=== PATIENT | male | born 1990 | race Caucasian/White ===

== ENCOUNTER → 2016-12-18 | Outpatient (CLI) | payer OTHER ==
[~2016-12-18] MED LIST: AZITTAB PO; CLIN300C10 PO
--- NOTE | 2016-12-18 14:46 | DIAGNOSTIC IMAGING REPORT ---
CHEST 2 VIEWS ROUTINE CLINICAL HISTORY: COUGH COMPARISON STUDY: 10/28/2012 FINDINGS: The cardiac and mediastinal contours are normal. There is no evidence of focal pulmonary consolidation. There is no evidence of failure. No pleural effusions are visualized.[ IMPRESSION: No active disease in the chest. Electronically signed by: Sebas Lomax M.D. 12/18/2016 2:44 PM Dictated Date/Time: 12/18/2016 2:44 PM
== END | disposition home or self-care (01) ==
LOC: C.RADBC 14:25
PROVIDERS: ATTEND Physician Assistant Medical
DX: R05 Cough (principal)

== ENCOUNTER 2017-03-13 20:02 | Emergency (ER) | payer OTHER ==
[~2017-03-13] VITALS: Ht 172.7 cm; Wt 75.0 kg
[2017-03-13 20:06] VITALS: TEMP 37.2; Ht 172.7 cm; Wt 75.0 kg
[2017-03-13] MEDS ORDERED: KETOROLAC TROMETHAMINE 30 MG/ML VIAL IV STA (20:19)
[2017-03-13] MEDS ORDERED: ONDANSETRON INJ 2 MG/ML 2 ML VIAL IV STA (20:19)
[2017-03-13] MEDS ORDERED: SODIUM CHLORIDE 0.9% 1000ML 2,000 ML IV STA (20:19)
[2017-03-13] MEDS ORDERED: AZITTAB PO (20:23)
[2017-03-13] MEDS ORDERED: OPTIRAY 320 IV PRN (20:30)
[2017-03-13 21:06] LABS: BUN/CREATININE RATIO 10.8 (10-20); CALCIUM 8.5 mg/dl (8.5-10.1); CREATININE 1.13 mg/dl (0.60-1.40); POTASSIUM 3.8 mmol/L (3.5-5.1)
--- NOTE | 2017-03-13 21:11 | DIAGNOSTIC IMAGING REPORT ---
(CHEST FOR PE) ANGIO WITH CT DOSE: 727.50 mGy.cm HISTORY: 27 years-old Male presents with acute atypical chest pain. TECHNIQUE: Multiple CTA images of the chest were obtained after the intravenous administration of 115 mL Optiray 320. Coronal and sagittal MIPS were obtained from the axial data set and were submitted for review. A dose lowering technique was utilized adhering to the principles of ALARA. COMPARISON: Chest radiographs of same day FINDINGS: CTA: There is adequate opacification of the pulmonary arteries to the level of the subsegmental branches without convincing evidence of acute pulmonary embolism. The thoracic aorta is normal in both course and caliber without dissection or aneurysm. Heart size is normal. Variant anatomy of the celiac trunk is noted with common hepatic artery emanating directly from the aortic arch. CT CHEST: No dominant thyroid nodule is seen. No pathologically adenopathy by CT size criteria. There is no pneumothorax, pleural effusion or focal airspace consolidation. 3 mm pleural-based nodular opacity of the apical right upper lobe on image 296 of series 4 is likely benign. Spleen is enlarged measuring up to 14.8 cm. Gallbladder is partially contracted with wall thickening. The osseous structures appear intact. IMPRESSION: 1. No acute intrathoracic abnormality identified, specifically no acute aortic pathology or evidence of pulmonary thromboembolic disease. 2. Moderate splenomegaly. The above report was generated using voice recognition software. It may contain grammatical, syntax or spelling errors. Electronically signed by: Marko Sevilla M.D. 03/13/2017 9:10 PM Dictated Date/Time: 03/13/2017 9:03 PM
[2017-03-13 21:12] LABS: HEMATOCRIT 38.8 % (42-52); MEAN CORPUSCULAR HEMOGLOBIN 31.8 pg (25-34); MEAN CORPUSCULAR HGB CONC 36.6 g/dl (32-36); PLATELET COUNT 100 K/uL (130-400); RED BLOOD COUNT 4.46 M/uL (4.7-6.1); WHITE BLOOD COUNT 7.31 K/uL (4.8-10.8)
[2017-03-13 21:13] LABS: COMPLETE YES; LYMPH ABS # 0.83 K/uL (1.2-3.4); LYMPHOCYTE % 11.3 %; NEUTROPHILS % 22.6 %; PLT ESTIMATE DECREASED; VARIANT LYM ABS # 4.45 K/uL; VARIANT LYMPHOCYTE % 60.9 %
--- NOTE | 2017-03-13 21:20 | DIAGNOSTIC IMAGING REPORT ---
ABD/PELVIS IV CONTRAST ONLY HISTORY: 27 years-old Male eleated lfts and dd sent in by pcp acute elevated liver function test. Acute atypical chest pain. COMPARISON: CTA chest of same day, right upper quadrant ultrasound 10/28/2012 TECHNIQUE: Multiple axial CT images of the abdomen and pelvis were obtained following the intravenous administration of 115 mL Optiray 320. A dose lowering technique was used consistent with the principals of KIEL. FINDINGS: Imaged lung bases are clear. There is no pneumoperitoneum identified. Imaged inferior cardiac chambers are unremarkable. There is mild periportal edema, likely related to hydration status. The liver is otherwise unremarkable. No intrahepatic biliary ductal dilation identified. No focal hepatic mass lesions. 6 mm area of increased attenuation is seen within the region of the gallbladder neck on image 123 of series 6. Nondistention of the gallbladder with diffuse bladder wall thickening. Spleen is moderately enlarged measuring up to 16 cm in length. Pancreas and adrenal glands are within normal limits. Delayed phase of imaging was conducted with excretory phase of the collecting systems. No renal calculi or hydronephrosis. Proximal opacified ureters are unremarkable. Urinary bladder and prostate are within normal limits. Abdominal aorta is normal in both course and caliber. Mildly prominent nonspecific periaortic lymph nodes are seen measuring up to 10 mm as seen on image 134 of series 6. Additionally, mildly prominent gastrohepatic and periportal lymph nodes are also seen measuring up to approximately 10 mm in short axis. Small duodenal diverticulum. No bowel obstruction. The appendix appears normal. No ascites. Soft tissues are unremarkable. Bones appear intact. No significant degenerative changes. IMPRESSION: 1. Moderate splenomegaly measuring up to 16 cm in length. 2. 6 mm area of increased attenuation near the gallbladder neck may correlate with previously described gallbladder polyps or cholelithiasis. Gallbladder is partially collapsed with wall thickening. Findings could be correlated with right upper quadrant ultrasound. 3. Normal appendix. 4. Mild nonspecific periaortic, gastrohepatic and periportal adenopathy. The above report was generated using voice recognition software. It may contain grammatical, syntax or spelling errors. Electronically signed by: Marko Sevilla M.D. 03/13/2017 9:18 PM Dictated Date/Time: 03/13/2017 9:10 PM
[2017-03-13 21:52] LABS: URINE APPEARANCE CLEAR (CLEAR); URINE BILIRUBIN NEG (NEG); URINE COLOR YELLOW; URINE EPITHELIAL CELL AUTO 0-5 /lpf (0-5); URINE NITRITE NEG (NEG); URINE PH 6.5 (4.5-7.5); URINE SPECIFIC GRAVITY > 1.045 (1.000-1.030); UROBILINOGEN NEG (NEG); ZZUR CULT IF INDIC CLEAN CATCH NO
[2017-03-13 22:02] LABS: MANUAL MICROSCOPIC REQUIRED? NO; REVIEW REQ? NO
--- NOTE | 2017-03-13 22:28 | DIAGNOSTIC IMAGING REPORT ---
GALLBLADDER-ABD LIMITED HISTORY: 27 years-old Male jane lfts acute elevated liver function tests COMPARISON: Gallbladder ultrasound 10/28/2012, CT abdomen of same day TECHNIQUE: Multiple real-time sonographic images of the abdominal right upper quadrant were obtained assessing grayscale appearance and color flow FINDINGS: Visualized portions of the pancreas are unremarkable. The liver measures up to 16.4 cm in length. Mild prominence of the intrahepatic biliary ducts. Gallbladder wall is thickened and hyperemic measuring up to 6 mm with partial distention of the gallbladder lumen. No shadowing cholelithiasis or gallbladder wall polyps identified. Common bile duct measures 0.5 cm. The imaged right kidney is unremarkable without hydronephrosis. IMPRESSION: 1. Partial distention of the gallbladder lumen with thickened hyperemic gallbladder wall demonstrating mild pericholecystic fluid. No associated cholelithiasis or definite gallbladder polyps identified. These findings are nonspecific. Differential considerations would include hepatitis, acalculus cholecystitis among other etiologies. 2. Mild prominence of the intrahepatic biliary ducts. Common bile duct is normal. The above report was generated using voice recognition software. It may contain grammatical, syntax or spelling errors. Electronically signed by: Marko Sevilla M.D. 03/13/2017 10:27 PM Dictated Date/Time: 03/13/2017 10:20 PM
--- NOTE | 2017-03-13 23:04 | EMERGENCY ROOM VISIT NOTE ---
History Report prepared by Joaquínibdoris: Steve Disla Under the Supervision of: Dr. Panda De Jesus D.O. First contact with patient: 20:09 Chief Complaint: ABNORMAL LABS Stated Complaint: ABNORMAL LAB RESULTS History of Present Illness The patient is a 27 year old male who presents to the Emergency Room with complaints of persistent generalized illness beginning six days ago. The patient also complains of body aches, diarrhea, nausea, headache, and sinus congestion. He states that he had an ear ache a few days ago. He denies sore throat or urinary symptoms. The patient states that he has not been eating much recently. He denies any drug use. He drinks occasionally with the most recent time being four days ago. The patient has taken [place] for his symptoms but has seen no relief. He had blood work drawn today and was called with the results just prior to arrival. He had the blood work with his PCP due to a persistent hot and cold sensations beginning six days ago. The patient states that the blood work revealed an elevated D-dimer and elevated LFTs. He checked his temperature three days ago and found it to be 101 degrees. He does complain of pain under both of his diaphragms but is only really present with eating. Source of History: patient Onset: Six days ago Position: other (generalized) Quality: other (illness) Timing: other (persistent) Associated Symptoms: + headache, + nausea, + diarrhea, No sorethroat, No urinary symptoms Note: The patient also complains of body aches, and sinus congestion. Review of Systems See HPI for pertinent positives & negatives. A total of 10 systems reviewed and were otherwise negative. Past Medical & Surgical Medical Problems: (1) No Known Active Medical Problems Family History No pertinent family history stated. Social History Smoking Status: Current Every Day Smoker Occupation Status: employed Current/Historical Medications Scheduled Azithromycin (Zithromax Z-Kishor), 1 PKT PO UD Allergies Coded Allergies: Morphine (Unverified Allergy, Severe, ANAPHYLAXIS, 03/13/17) Amoxicillin (Verified Allergy, Mild, RASH, 10/28/12) Penicillins (Verified Allergy, Unknown, HIVES, 12/11/16) Physical Exam Vital Signs Date Time Temp Pulse Resp B/P (MAP) Pulse Ox O2 Delivery O2 Flow Rate FiO2 03/13/17 21:51 90 18 119/66 100 Room Air 10/25/17 20:06 37.2 113 18 131/87 95 Room Air Physical Exam GENERAL: Sitting up in bed, alert, well appearing, well nourished, no distress, non-toxic EYE EXAM: normal conjunctiva. OROPHARYNX: no exudate, no erythema, lips, buccal mucosa, and tongue normal and mucous membranes are moist NECK: supple, no nuchal rigidity, no adenopathy, non-tender LUNGS: Clear to auscultation. Normal chest wall mechanics HEART: no murmurs, S1 normal and S2 normal ABDOMEN: abdomen soft, non-tender, normo-active bowel sounds, no masses, no rebound or guarding. BACK: Back is symmetrical on inspection and there is no deformity, no midline tenderness, no CVA tenderness. SKIN: no rashes and no bruising UPPER EXTREMITIES: upper extremities are grossly normal. LOWER EXTREMITIES: No pitting edema. NEURO EXAM: Normal sensorium, cranial nerves II-XII grossly intact, normal speech, no gross weakness of arms, no gross weakness of legs. Medical Decision & Procedures ER Provider Diagnostic Interpretation: Radiology results as stated below per my review and the radiologist's interpretation: (CHEST FOR PE) ANGIO WITH FINDINGS: CTA: There is adequate opacification of the pulmonary arteries to the level of the subsegmental branches without convincing evidence of acute pulmonary embolism. The thoracic aorta is normal in both course and caliber without dissection or aneurysm. Heart size is normal. Variant anatomy of the celiac trunk is noted with common hepatic artery emanating directly from the aortic arch. CT CHEST: No dominant thyroid nodule is seen. No pathologically adenopathy by CT size criteria. There is no pneumothorax, pleural effusion or focal airspace consolidation. 3 mm pleural-based nodular opacity of the apical right upper lobe on image 296 of series 4 is likely benign. Spleen is enlarged measuring up to 14.8 cm. Gallbladder is partially contracted with wall thickening. The osseous structures appear intact. IMPRESSION: 1. No acute intrathoracic abnormality identified, specifically no acute aortic pathology or evidence of pulmonary thromboembolic disease. 2. Moderate splenomegaly. The above report was generated using voice recognition software. It may contain grammatical, syntax or spelling errors. Electronically signed by: Marko Sevilla M.D. 03/13/2017 9:10 PM ABD/PELVIS IV CONTRAST ONLY FINDINGS: Imaged lung bases are clear. There is no pneumoperitoneum identified. Imaged inferior cardiac chambers are unremarkable. There is mild periportal edema, likely related to hydration status. The liver is otherwise unremarkable. No intrahepatic biliary ductal dilation identified. No focal hepatic mass lesions. 6 mm area of increased attenuation is seen within the region of the gallbladder neck on image 123 of series 6. Nondistention of the gallbladder with diffuse bladder wall thickening. Spleen is moderately enlarged measuring up to 16 cm in length. Pancreas and adrenal glands are within normal limits. Delayed phase of imaging was conducted with excretory phase of the collecting systems. No renal calculi or hydronephrosis. Proximal opacified ureters are unremarkable. Urinary bladder and prostate are within normal limits. Abdominal aorta is normal in both course and caliber. Mildly prominent nonspecific periaortic lymph nodes are seen measuring up to 10 mm as seen on image 134 of series 6. Additionally, mildly prominent gastrohepatic and periportal lymph nodes are also seen measuring up to approximately 10 mm in short axis. Small duodenal diverticulum. No bowel obstruction. The appendix appears normal. No ascites. Soft tissues are unremarkable. Bones appear intact. No significant degenerative changes. IMPRESSION: 1. Moderate splenomegaly measuring up to 16 cm in length. 2. 6 mm area of increased attenuation near the gallbladder neck may correlate with previously described gallbladder polyps or cholelithiasis. Gallbladder is partially collapsed with wall thickening. Findings could be correlated with right upper quadrant ultrasound. 3. Normal appendix. 4. Mild nonspecific periaortic, gastrohepatic and periportal adenopathy. The above report was generated using voice recognition software. It may contain grammatical, syntax or spelling errors. Electronically signed by: Marko Sevilla M.D. 03/13/2017 9:18 PM Laboratory Results 03/13/17 20:35 Red Blood Count 4.46, Mean Corpuscular Volume 87.0, Mean Corpuscular Hemoglobin 31.8, Mean Corpuscular Hemoglobin Concent 36.6, Mean Platelet Volume 10.0 03/13/17 20:35 Test 03/13/17 20:35 03/13/17 21:30 White Blood Count 7.31 K/uL (4.8-10.8) Red Blood Count 4.46 M/uL (4.7-6.1) Hemoglobin 14.2 g/dL (14.0-18.0) Hematocrit 38.8 % (42-52) Mean Corpuscular Volume 87.0 fL (80-100) Mean Corpuscular Hemoglobin 31.8 pg (25-34) Mean Corpuscular Hemoglobin Concent 36.6 g/dl (32-36) Platelet Count 100 K/uL (130-400) Mean Platelet Volume 10.0 fL (7.4-10.4) RDW Standard Deviation 40.7 fL (36.4-46.3) RDW Coefficient of Variation 12.7 % (11.5-14.5) Neutrophils % (Manual) 22.6 % Lymphocytes % (Manual) 11.3 % Variant Lymphocytes % (manual) 60.9 % Monocytes % (Manual) 5.2 % Neutrophils # (Manual) 1.65 K/uL (1.4-6.5) Total Absolute Neutrophils 1.65 K/uL (1.4-6.5) Lymphocytes # (Manual) 0.83 K/uL (1.2-3.4) Absolute Variant Lymphocytes 4.45 K/uL Total Absolute Lymphocytes 5.28 K/uL (1.2-3.4) Monocytes # (Manual) 0.38 K/uL (0.11-0.59) Platelet Estimate DECREASED Red Blood Cell Morphology Unremarkable Anion Gap 6.0 mmol/L (3-11) Est Creatinine Clear Calc Drug Dose 96.7 ml/min Estimated GFR () 104.1 Estimated GFR (Non- 89.8 BUN/Creatinine Ratio 10.8 (10-20) Calcium Level 8.5 mg/dl (8.5-10.1) Total Bilirubin 0.8 mg/dl (0.2-1) Direct Bilirubin 0.2 mg/dl (0-0.2) Aspartate Amino Transf (AST/SGOT) 105 U/L (15-37) Alanine Aminotransferase (ALT/SGPT) 122 U/L (12-78) Alkaline Phosphatase 131 U/L (45-117) Total Protein 7.6 gm/dl (6.4-8.2) Albumin 3.6 gm/dl (3.4-5.0) Lipase 118 U/L (73-393) Monoscreen POS (NEG) Urine Color YELLOW Urine Appearance CLEAR (CLEAR) Urine pH 6.5 (4.5-7.5) Urine Specific [place] > 1.045 (1.000-1.030) Urine Protein NEG (NEG) Urine Glucose (UA) NEG (NEG) Urine Ketones NEG (NEG) Urine Occult Blood NEG (NEG) Urine Nitrite NEG (NEG) Urine Bilirubin NEG (NEG) Urine Urobilinogen NEG (NEG) Urine Leukocyte Esterase NEG (NEG) Urine WBC (Auto) 0 /hpf (0-5) Urine RBC (Auto) 0-4 /hpf (0-4) Urine Hyaline Casts (Auto) 1-5 /lpf (0-5) Urine Epithelial Cells (Auto) 0-5 /lpf (0-5) Urine Bacteria (Auto) NEG (NEG) Laboratory results per my review. Medications Administered Medications (Trade) Dose Ordered Sig/Benson Route Start Time Stop Time Status Last Admin Dose Admin Sodium Chloride 2,000 ml @ 999 mls/hr Q2H1M STAT IV 03/13/17 20:19 03/13/17 22:19 DC 03/13/17 20:38 999 MLS/HR Ondansetron HCl (Zofran Inj) 4 mg NOW STAT IV 03/13/17 20:19 03/13/17 20:20 DC 03/13/17 20:38 4 MG Ketorolac Tromethamine (Toradol Inj) 15 mg NOW STAT IV 03/13/17 20:19 03/13/17 20:20 DC 03/13/17 20:38 15 MG ECG Indication: other (illness) Rate (beats per minute): 64 Rhythm: sinus rhythm Findings: no ectopy, other (Normal intervals. Normal axis. ) ED Course ED COURSE: Vital signs were reviewed and showed tachycardia. The patients medical record was reviewed The above diagnostic studies were performed and reviewed. ED treatments and interventions as stated above. 2010: The patient was evaluated in room C5. A complete history and physical examination was performed. 2019: Ordered Toradol Inj 15 mg IV, Zofran Inj 4 mg IV, Sodium Chloride 2000 ml @ 999 mls/hr IV. 2230: Upon reevaluation, the patient is resting comfortably. I discussed my findings with the patient and he understands and agrees with the treatment plan. 2250: Discussed with Dr. Price 2300: D/w IM and they will admit Based on the patients age, coexisting illnesses, exam and lab findings the decision to treat as an inpatient was made. The patient remained stable while under my care. The patient appeared well at the time of admission. Medical Decision Differential diagnosis: Etiologies such as viral syndrome, otitis, pharyngitis, pneumonia, influenza, meningitis, urinary tract infection, sepsis, bacteremia, as well as others were entertained. Patient is a 27-year-old male who presents to ER following feeling hot and cold over the past 6 days associated with a fever of 1013 days ago. He admits to feeling achy all over a sore throat. He also has some nausea and intermittent ear pain. Patient was seen by PCP and found to have a transaminitis and elevated d-dimer. Patient was sent in to have a CT for possible about a clot versus PE. Because going labs were obtained. Did confirm a transaminitis. CT PE was negative. CT of the abdomen showed a thickened gallbladder wall. Cecil did eventually return and was positive. Ultrasound of right upper quadrant does show thickening of the gallbladder wall associated with pericholecystic fluid. I do not think this is acute cholecystitis. There is no stones and with his presentation, positive mono, transaminitis, enlarged spleen, I favor this is likely secondary to mono. I did discuss with general surgery. They agree likely secondary to mono. I did recommend admission to internal medicine for HIDA scan. I updated patient and family. Discussed with internal medicine for admission and they agreed. At 1110 Dr. Good evaluated the patient and rediscussed the case with Dr. Price. Per his report patient can be discharged and just follow up with the PCP. Patient and family were re-updated at bedside. Recommended following up with PCP per Dr. Price's request for mono. Again the patient had a completely benign exam. Medication Reconcilliation Current Medication List: was personally reviewed by me Blood Pressure Screening Patient's blood pressure: Normal blood pressure Blood pressure disposition: Did not require urgent referral Consults Time Called: 2300 Consulting Physician: Herve Good Additional Consults: Consulted Physician: Dr. Price Additional Comments: Recommended admission for HIDA scan in morning. Impression Primary Impression: Mononucleosis syndrome Additional Impressions: Spleen enlarged Transaminitis Thickening of wall of gallbladder pericholecystic fluid Scribe Attestation The scribe's documentation has been prepared under my direction and personally reviewed by me in its entirety. I confirm that the note above accurately reflects all work, treatment, procedures, and medical decision making performed by me. Departure Information Dispostion Home / Self-Care Referrals Trudy Howell M.D. (PCP) Forms HOME CARE DOCUMENTATION FORM, IMPORTANT VISIT INFORMATION, WORK / SCHOOL INSTRUCTIONS Patient Instructions ED Mononucleosis, [facility] Additional Instructions Please follow up with your primary care doctor with in the next 24 hours. Any worsening of your symptoms, please return to the ED immediately. This includes any fevers greater than 100.4, worsening pain, chest pain, shortness breath, persistent nausea, vomiting, unable to eat or drink, or any other concerning signs or symptoms from your standpoint. No return to any physical activity until cleared by her primary care doctor as you have an enlarged spleen and any trauma could rupture this. Please have your LFTs followed up on by your primary care doctor as there is slightly elevated but this is expected with mono. Problem Qualifiers
[2017-03-13 23:18] VITALS: BP 118/73; PULSE 88; O2SAT 99
--- NOTE | 2017-03-13 23:24 | Medical Consult ---
Consultation Date of Consultation: Mar 13, 2017. Attending Physician: History of Present Illness 27 y/o M - no significant medical Hx. Presents at behest of PCP due to 4 days persistent fever and abnormal LFTs. A Burleson spot was obtained in the ER which was +. The pt had also been c/o pleuritic upper abdomen/lower chest pain. He was subjected to a chest/abdomen CT which revealed an enlarged spleen and thickened gallbladder described as a nonspecific finding. He does not have central CP, SOB, N/V and denies a sore throat. US findings were consistent with CT findings. Past Medical/Surgical History Medical Problems: (1) Mononucleosis syndrome Status: Acute (2) Spleen enlarged Status: Acute (3) Thickening of wall of gallbladder Status: Acute (4) Transaminitis Status: Acute Family History noncontributory to above Social History States he drinks occasionally, smokes 1 pack/month - works in deliveries Does not play contact sports - attends gym 4x/wk Smoking Status: Current Every Day Smoker Occupation Status: employed Allergies Coded Allergies: Morphine (Unverified Allergy, Severe, ANAPHYLAXIS, 03/13/17) Amoxicillin (Verified Allergy, Mild, RASH, 10/28/12) Penicillins (Verified Allergy, Unknown, HIVES, 12/11/16) Current Inpatient Medications Current Inpatient Medications Medications (Trade) Dose Ordered Sig/Benson Route Start Time Stop Time Status Last Admin Dose Admin Ioversol (Optiray 320) 111 ml UD PRN IV 03/13/17 20:30 03/17/17 20:29 Review of Systems Constitutional: + fever, + sweats Eyes: No worsening of vision ENT: No hearing loss, No nasal symptoms Respiratory: No cough, No sputum, No wheezing Cardiovascular: + chest pain (pleuritic b/l lower) Abdomen: + pain, No nausea, No vomiting Musculoskeletal: No joint pain Genitourinary - Male: No hematuria, No urinary urgency Neurologic: No memory loss, No paralysis, No weakness Psychiatric: No depression symptoms Endocrine: + fatigue Hematologic / Lymphatic: No abnormal bleeding/bruising Integumentary: No rash Allergic / Immunologic: No environmental allergies Physical Exam Date Time Temp Pulse Resp B/P (MAP) Pulse Ox O2 Delivery O2 Flow Rate FiO2 03/13/17 21:51 90 18 119/66 100 Room Air 03/13/17 20:06 37.2 113 18 131/87 95 Room Air General Appearance: WD/WN, no apparent distress Head: normocephalic ENT: normal ENT inspection, pharynx normal Neck: supple, no JVD Respiratory/Chest: chest non-tender, lungs clear, normal breath sounds Cardiovascular: regular rate, rhythm, no edema, no gallop, no JVD, no murmur, normal peripheral pulses Abdomen/GI: normal bowel sounds, soft, + splenomegaly, + pertinent finding ( Could not elicit upper abdominal pain including RUQ on on deep palpation) Back: normal inspection, no CVA tenderness, no muscle spasm, normal range of motion Extremities/Musculoskelatal: normal inspection, normal range of motion Neurologic/Psych: pigment pusher II-XII nml as tested, no motor/sensory deficits, alert, oriented x 3 Skin: normal color Laboratory Results Last 24 Hours Test 03/13/17 20:35 03/13/17 21:30 White Blood Count 7.31 K/uL Red Blood Count 4.46 M/uL Hemoglobin 14.2 g/dL Hematocrit 38.8 % Mean Corpuscular Volume 87.0 fL Mean Corpuscular Hemoglobin 31.8 pg Mean Corpuscular Hemoglobin Concent 36.6 g/dl Platelet Count 100 K/uL Mean Platelet Volume 10.0 fL RDW Standard Deviation 40.7 fL RDW Coefficient of Variation 12.7 % Neutrophils % (Manual) 22.6 % Lymphocytes % (Manual) 11.3 % Variant Lymphocytes % (manual) 60.9 % Monocytes % (Manual) 5.2 % Neutrophils # (Manual) 1.65 K/uL Total Absolute Neutrophils 1.65 K/uL Lymphocytes # (Manual) 0.83 K/uL Absolute Variant Lymphocytes 4.45 K/uL Total Absolute Lymphocytes 5.28 K/uL Monocytes # (Manual) 0.38 K/uL Platelet Estimate DECREASED Red Blood Cell Morphology Unremarkable Sodium Level 138 mmol/L Potassium Level 3.8 mmol/L Chloride Level 104 mmol/L Carbon Dioxide Level 28 mmol/L Anion Gap 6.0 mmol/L Blood Urea Nitrogen 12 mg/dl Creatinine 1.13 mg/dl Est Creatinine Clear Calc Drug Dose 96.7 ml/min Estimated GFR () 104.1 Estimated GFR (Non- 89.8 BUN/Creatinine Ratio 10.8 Random Glucose 92 mg/dl Calcium Level 8.5 mg/dl Total Bilirubin 0.8 mg/dl Direct Bilirubin 0.2 mg/dl Aspartate Amino Transf (AST/SGOT) 105 U/L Alanine Aminotransferase (ALT/SGPT) 122 U/L Alkaline Phosphatase 131 U/L Total Protein 7.6 gm/dl Albumin 3.6 gm/dl Lipase 118 U/L Monoscreen POS Urine Color YELLOW Urine Appearance CLEAR Urine pH 6.5 Urine Specific [place] > 1.045 Urine Protein NEG Urine Glucose (UA) NEG Urine Ketones NEG Urine Occult Blood NEG Urine Nitrite NEG Urine Bilirubin NEG Urine Urobilinogen NEG Urine Leukocyte Esterase NEG Urine WBC (Auto) 0 /hpf Urine RBC (Auto) 0-4 /hpf Urine Hyaline Casts (Auto) 1-5 /lpf Urine Epithelial Cells (Auto) 0-5 /lpf Urine Bacteria (Auto) NEG Assessment & Plan 27 y/o M - no significant medical Hx. Presents at [facility] due to 4 days persistent fever and abnormal LFTs. A Burleson spot was obtained in the ER which was +. The pt had also been c/o pleuritic upper abdomen/lower chest pain. He was subjected to a chest/abdomen CT which revealed an enlarged spleen and thickened gallbladder described as a nonspecific finding. He does not have central CP, SOB, N/V and denies a sore throat. Despite US and CT findings - there are no clinical findings consistent with acute cholecystitis - The pt has confirmed Burleson so that splenomegaly and transaminitis may e expected. We believe it is then reasonable to follow-up with his primary MD. With persistent symptoms or if he develops RUQ tenderness , a HIDA scan should be considered. This case was discussed with ER attending, surgeon, pt and family Total time for this consult 30 min
== END 2017-03-13 23:21 | disposition home or self-care (01) ==
LOC: C.EDB 20:04 → C.EDC 23:21
DX: R79.1 Abnormal coagulation profile (principal); B27.90 Infectious mononucleosis, unspecified without complication; R16.1 Splenomegaly, not elsewhere classified; R74.8 Abnormal levels of other serum enzymes; F17.210 Nicotine dependence, cigarettes, uncomplicated; K82.9 Disease of gallbladder, unspecified

== ENCOUNTER → 2017-03-13 | Outpatient (CLI) | payer OTHER ==
--- NOTE | 2017-03-13 17:33 | DIAGNOSTIC IMAGING REPORT ---
CHEST 2 VIEWS ROUTINE HISTORY: 27 years-old Male R50.9 Fever acute intermittent fever for one month. COMPARISON: Chest radiographs 12/18/2016 TECHNIQUE: PA and lateral views of the chest FINDINGS: Cardiomediastinal and hilar silhouettes are within normal limits. No pneumothorax, pleural effusion, focal airspace consolidation or overt pulmonary edema. The bones of the chest are grossly intact. The imaged upper abdomen is unremarkable. IMPRESSION: No acute cardiopulmonary process. The above report was generated using voice recognition software. It may contain grammatical, syntax or spelling errors. Electronically signed by: Marko Seivlla M.D. 03/13/2017 5:32 PM Dictated Date/Time: 03/13/2017 5:30 PM
[2017-03-13 18:35] LABS: ALT/SGPT 112 U/L (12-78); BLOOD UREA NITROGEN 12 mg/dl (7-18); BUN/CREATININE RATIO 11.3 (10-20); CALCIUM 8.8 mg/dl (8.5-10.1); CARBON DIOXIDE 29 mmol/L (21-32); CHLORIDE 104 mmol/L (98-107); CREATININE 1.02 mg/dl (0.60-1.40); GLUCOSE 99 mg/dl (70-99); SODIUM 138 mmol/L (136-145)
[2017-03-13 18:38] LABS: ALB/GLOB RATIO 0.9 (0.9-2); ALKALINE PHOSPHATASE 128 U/L (45-117); AST/SGOT 96 U/L (15-37)
[2017-03-13 18:39] LABS: HEMATOCRIT 39.8 % (42-52); MEAN CELL VOLUME 87.7 fL (80-100); MEAN CORPUSCULAR HEMOGLOBIN 31.7 pg (25-34); MEAN CORPUSCULAR HGB CONC 36.2 g/dl (32-36); MEAN PLATELET VOLUME 10.2 fL (7.4-10.4); PLATELET COUNT 95 K/uL (130-400); RED BLOOD COUNT 4.54 M/uL (4.7-6.1); WHITE BLOOD COUNT 7.54 K/uL (4.8-10.8)
[2017-03-13 18:40] LABS: BASO ABS # 0.14 K/uL (0-0.2); BASOPHIL % 1.8 % (0-2); COMPLETE YES; LYMPH ABS # 0.73 K/uL (1.2-3.4); LYMPHOCYTE % 9.7 %; NEUTROPHILS % 20.4 %; PLT ESTIMATE DECREASED; VARIANT LYM ABS # 4.27 K/uL; VARIANT LYMPHOCYTE % 56.6 %
[2017-03-13 19:42] LABS: LYME DISEASE AB IGG NEG (NEG); LYME DISEASE AB IGM NEG (NEG)
== END | disposition home or self-care (01) ==
LOC: C.LAB 17:03
PROVIDERS: ATTEND Physician Assistant
DX: R50.9 Fever, unspecified (principal); R07.89 Other chest pain